=== PATIENT | female | born 1995 | race Caucasian/White ===

== ENCOUNTER 2016-08-29 13:26 | Inpatient (IN) | payer OTHER ==
[2016-08-29] MEDS ORDERED: Nalbuphine* 20 MG/ML 1 ML VIAL IV ONE (16:16)
[2016-08-29] MEDS ORDERED: Promethazine TAB* 25 MG PO PRN (16:17)
[2016-08-29] MEDS ORDERED: Nalbuphine* 20 MG/ML 1 ML VIAL IM PRN ×2 (16:47→20:00)
[2016-08-29] MEDS: Promethazine INJ(RESTRICTED)* 25 MG/ML 1 ML VIAL IM SCH (20:31)
[2016-08-30] MEDS ORDERED: Oxytocin in LR* 20 UNITS/1,000 ML BAG IVPB SCH (09:00)
[2016-08-30 09:12] LABS: Hematocrit 33 % (35-47); Mean Corpuscular HGB Conc 33 g/dl (31-36); Mean Corpuscular Hemoglobin 29 pg (27-31); Mean Corpuscular Volume 87 fL (80-97); Mean Platelet Volume 9 um3 (7.4-10.4); Red Blood Count 3.78 10^6/ul (4.0-5.4); Red Cell Distribution Width 14 % (10.5-15); White Blood Count 17.7 10^3/ul (3.5-10.8)
[2016-08-30] MEDS ORDERED: OBEPIDURAL* 250 ML ONE (17:14)
[2016-08-30] MEDS ORDERED: Sodium Citrate/Citric Acid* 15 ML UDC PO PRN (17:55)
[2016-08-30] MEDS ORDERED: Phenylephrine IV* 40 MCG/ML 10 ML SYRINGE IV PUSH PRN ×2 (17:55)
[2016-08-30] MEDS ORDERED: Famotidine TAB* 20 MG PO PRN (17:55)
[2016-08-31] MEDS ORDERED: Witch Hazel PAD* JAR TOPICAL PRN (03:59)
[2016-08-31] MEDS ORDERED: Dibucaine 1% 28.35 GM TUBE PR PRN (03:59)
[2016-08-31] MEDS ORDERED: Glycerin ADULT SUPP PR PRN (03:59)
[2016-08-31] MEDS ORDERED: Acetaminophen TAB* 325 MG PO PRN (03:59)
[2016-08-31] MEDS ORDERED: Oxytocin in LR* 20 UNITS/1,000 ML BAG IVPB SCH (04:00)
[2016-08-31] MEDS ORDERED: Lidocaine 1% MPF* 2 ML VIAL ONE (04:08)
[2016-08-31] MEDS ORDERED: Simethicone CHEW TAB* 80 MG PO SCH (08:30)
[2016-08-31] MEDS: Docusate CAP* 100 MG PO SCH ×3 (08:49→21:49)
[2016-08-31] MEDS: Ibuprofen TAB* 600 MG PO PRN ×3 (08:50→20:22)
[2016-08-31] MEDS: Promethazine INJ(RESTRICTED)* 25 MG/ML 1 ML VIAL IM SCH ×2 (21:47→21:48)
[2016-08-31] MEDS: OBEPIDURAL* 250 ML EPIDURAL SCH (22:01)
[2016-09-01 07:32] LABS: Hematocrit 30 % (35-47); Hemoglobin 9.7 g/dl (12.0-16.0); Mean Corpuscular HGB Conc 33 g/dl (31-36); Mean Corpuscular Hemoglobin 29 pg (27-31); Mean Corpuscular Volume 88 fL (80-97); Mean Platelet Volume 9 um3 (7.4-10.4); Red Blood Count 3.38 10^6/ul (4.0-5.4); Red Cell Distribution Width 14 % (10.5-15); White Blood Count 22.8 10^3/ul (3.5-10.8)
[2016-09-01 08:09] VITALS: BP 110/56
[2016-09-01] MEDS ORDERED: Ferrous Gluconate TAB* 324 MG TAB PO SCH (09:00)
[2016-09-01] MEDS: Docusate CAP* 100 MG PO SCH (09:34)
[2016-09-01] MEDS: Ibuprofen TAB* 600 MG PO PRN (13:21)
== END 2016-09-01 14:16 | disposition home or self-care (01) | DRG 560 ==
LOC: MCHOBOUT 13:26 → MCHOB 15:51 → MCHOBOUT 16:31 → MCHOB 16:32
PROVIDERS: ADMIT Midwife; ATTEND Midwife
PROC: 10907ZC Drainage of Amniotic Fluid, Therapeutic from Products of Conception, Via Natural or Artificial Opening (ICD-10-PCS; principal; 2016-08-29)
PROC: 4A1HXCZ Monitoring of Products of Conception, Cardiac Rate, External Approach (ICD-10-PCS; 2016-08-29)
PROC: 10E0XZZ Delivery of Products of Conception, External Approach (ICD-10-PCS; 2016-08-29)
DX: O69.89X0 Labor and delivery complicated by other cord complications, not applicable or unspecified (principal); O90.81 Anemia of the puerperium; Z3A.39 39 weeks gestation of pregnancy; Z37.0 Single live birth; Z87.891 Personal history of nicotine dependence; O32.8XX0 Maternal care for other malpresentation of fetus, not applicable or unspecified
CPT/HCPCS: 36415; 85025; 86850; 86900; 86901; A9270-GY; J2300; J2550

== ENCOUNTER 2016-11-08 06:52 | Day surgery (SDC) | payer MEDICAID, OTHER ==
[~2016-11-08 06:52] MED LIST: Buffered Lidocaine 0.9% SYRIN* 5 ML/SYR SYRINGE INTRADERM ONE
[2016-11-08] MEDS ORDERED: ceFOXitin 2 GM IVPREMIX* 2 GM/50 ML BAG ONE (06:53)
[2016-11-08] MEDS ORDERED: Bupivacaine 0.5% W/EPI SDV* 10 ML VIAL INJ ONE (07:06)
[2016-11-08] MEDS ORDERED: Midazolam* 1 MG/ML 2 ML VIAL (2 MG) ONE (07:26)
[2016-11-08] MEDS ORDERED: fentaNYL* 50 MCG/ML 2 ML VIAL (100 MCG VIAL) ONE ×2 (07:26→08:58)
[2016-11-08] MEDS ORDERED: Propofol* 10 MG/ML 20 ML BTL IV PUSH ONE (08:17)
[2016-11-08] MEDS ORDERED: Dexamethasone IV* 4 MG/ML 1 ML (4 MG) ONE (08:17)
[2016-11-08] MEDS ORDERED: Ondansetron INJ* 2 MG/ML VIAL ONE (08:17)
[2016-11-08] MEDS ORDERED: Ketorolac INJ* 30 MG/ML 1 ML VIAL ONE (08:17)
[2016-11-08] MEDS ORDERED: Famotidine IV* 10 MG/ML 2 ML (20 mg) ONE (08:17)
[2016-11-08] MEDS ORDERED: Lidocaine 2% PF * 5 ML VIAL ONE (08:17)
[2016-11-08] MEDS ORDERED: Succinylcholine* 20 MG/ML 10 ML VIAL ONE (08:17)
[2016-11-08] MEDS ORDERED: HYDROmorphone* 1 MG/ML 1 ML SYR ONE (08:26)
[2016-11-08] MEDS ORDERED: Ondansetron INJ* 2 MG/ML VIAL IV PRN (08:30)
[2016-11-08] MEDS ORDERED: Acetaminophen TAB* 325 MG PO PRN (08:30)
[2016-11-08] MEDS ORDERED: PROCHLORPERAZINE INJ 5 MG/ML 2 ML VIAL IV PRN (08:30)
[2016-11-08] MEDS ORDERED: fentaNYL* 50 MCG/ML 2 ML VIAL (100 MCG VIAL) IV PRN (08:30)
[2016-11-08] MEDS ORDERED: DiMENhydriNATE IV* 50 MG/ML VIAL IV PUSH PRN (08:30)
[2016-11-08] MEDS ORDERED: HYDROcodone/ACETAMIN 5-325 MG* 1 TAB PO PRN (08:30)
[2016-11-08] MEDS ORDERED: HYDROcodone/ACETAMIN 5-325 MG* 1 TAB ONE ×2 (09:53→10:44)
[2016-11-08 11:08] VITALS: BP 137/81
--- NOTE | 2016-11-10 03:06 | OP ---
DATE OF OPERATION: 11/08/16 [facility] DATE OF : 89 SURGEON: David Heck MD ANESTHESIOLOGIST: Dr. Hatch ANESTHESIA: General anesthetic with endotracheal intubation. PRE-OP DIAGNOSIS: Multiparity, the patient desires permanent surgical sterilization. POST-OP DIAGNOSIS: Multiparity, the patient desires permanent surgical sterilization. OPERATIVE PROCEDURE: Bilateral laparoscopic tubal ligation with Filshie clips. ESTIMATED BLOOD LOSS: None. SPECIMENS SENT TO PATHOLOGY: None. FLUIDS: She received 600 cc of IV crystalloid fluid. URINE OUTPUT: Her urine output was 200 cc of clear urine. FINDINGS: Laparoscopically, the patient was noted to have a normal uterus, adnexa, bowel, and bladder and normal tubes and ovaries bilaterally and there were no complications. DESCRIPTION OF PROCEDURE: The patient was taken to the operating room, where she was identified. She was placed on the operating table, where a general anesthetic with endotracheal intubation was obtained without difficulty. She was then placed in the dorsal lithotomy position, prepped and draped in normal sterile fashion. Attention was then brought on to the patient's perineum, where the bladder was catheterized with a Hidalgo catheter and drained of clear urine. A speculum was inserted into the patient's vagina. The cervix was identified and grasped with a single-tooth tenaculum. The uterus was the sounded to about 9 cm and after sounding the uterus, a ClearView uterine manipulator was introduced through the cervix, the balloon and manipulator was insufflated with 4 cc of sterile water. The speculum was then removed. Attention was then brought on to the patient's abdomen, where a 1-cm infraumbilical skin incision was made with a knife and carried through to underlying layer of fascia. The fascia was then grasped with Matthew clamps and brought up to the incision and the fascia was then nicked in the midline using a knife, extended laterally with a Darcy clamp. Entry into the peritoneum was confirmed using Darcy clamp and visualization. At this point, were then placed with 0 Polysorb suture and through this incision, a 10-mm blunt trocar was introduced. The balloon in the trocar was insufflated with 20 cc of air and the sutures were attached to the trocar. At this point, we proceeded to insufflate the patient' s abdomen with CO2 gas and a look with laparoscope revealed findings as noted above. A second trocar was then introduced 4 cm above the symphysis pubis in the midline under direct visualization. Through this incision and trocar, a Filshie clip applicator was introduced. Filshie clip was then applied to the fallopian tubes bilaterally with good blanching and complete occlusion of the fallopian tubes circumference bilaterally. There was no bleeding and no complications. The instruments and all the trocars were then removed from the patient's abdomen. The umbilical fascial incision was closed with 0 Polysorb suture in a running fashion and the skin incisions at the umbilicus and suprapubically were closed with 4-0 Vicryl in a subcuticular stitch. All the instruments were also removed from the patient's vagina as well as the Hidalgo catheter. Sponge, lap, and needle counts were correct x2. She was then transferred to recovery room area in stable condition. [id number]/CPS #: [id number]
== END 2016-11-08 11:08 | disposition home or self-care (01) ==
LOC: OR 06:52
PROVIDERS: ATTEND Obstetrics & Gynecology
DX: Z30.2 Encounter for sterilization (principal); Z87.891 Personal history of nicotine dependence
CPT/HCPCS: 36415; 84702; C1776; J0330; J0694; J1100; J1170; J1885; J2250; J2405; J2704; J3010